=== PATIENT | male | born 1975 | race Caucasian/White ===

== ENCOUNTER 2017-07-02 16:59 | Emergency (ER) | payer OTHER ==
[~2017-07-02] VITALS: Ht 175.3 cm; Wt 88.6 kg
[2017-07-02 17:12] VITALS: BP 162/100; PULSE 114; RESP 15; O2SAT 98
[2017-07-02] MEDS ORDERED: METF850T PO (17:12)
[2017-07-02] MEDS ORDERED: GLIP5TAB8 PO (17:12)
[2017-07-02] MEDS ORDERED: ZOLO100T PO (17:12)
[2017-07-02] MEDS ORDERED: INSULIN HUMAN REGULAR 1,000 UNITS/10 ML VIAL IV PUSH ONE (17:15)
[2017-07-02] MEDS ORDERED: SODIUM CHLOR 0.9% 1000 ML INJ 1,000 ML IV ONE ×2 (17:15→17:45)
[2017-07-02] MEDS ORDERED: SODIUM CHLORIDE 0.9% FLUSH 10 ML FLUSH IVF PRN (17:15)
[2017-07-02 17:19] VITALS: BP 147/88; PULSE 113; PULSE 114; RESP 15; O2SAT 97; O2SAT 98
--- NOTE | 2017-07-02 17:20 | PD ---
HPI Chief Complaint: suicidal ideation Time Seen by Provider: 17:12 Travel History International Travel<30 days: No Contact w/Intl Traveler<30days: No Traveled to known affect area: No History of Present Illness HPI This patient has history of PTSD and diabetes. Been feeling depressed and suicidal for the last 5 days. He quit taking his medication 5 days ago. Accu- Chek on arrival was 539. He does not have specific suicidal plan. Symptoms severity is moderate. No alleviating factors. No exacerbating factors. He denies alcohol or drug abuse other than occasional marijuana. PFSH Social History Alcohol Use: No Tobacco Use: No Substance Use: No Allergies-Medications (Allergen,Severity, Reaction): Coded Allergies: No Known Allergies (Unverified , 07/02/17) Reported Meds & Prescriptions Reported Meds & Active Scripts Active Reported Metformin (Metformin HCl) 850 Mg Tab 850 Mg PO DAILY With a meal Glipizide 5 Mg Tab 5 Mg PO BIDAC Take 30 minutes before a meal Zoloft (Sertraline HCl) 100 Mg Tab 100 Mg PO DAILY Review of Systems General / Constitutional: No: Fever Eyes: No: Visual changes HENT: No: Headaches Cardiovascular: No: Chest Pain or Discomfort Respiratory: No: Shortness of Breath Gastrointestinal: No: Abdominal Pain Genitourinary: No: Dysuria Musculoskeletal: No: Pain Skin: No Rash Neurologic: No: Weakness Psychiatric: Positive: Depression, Suicidal Ideations, Disorder of Thought, Substance Abuse Endocrine: No: Polydipsia Hematologic/Lymphatic: No: Easy Bruising Physical Exam Narrative GENERAL: Well-nourished, well-developed patient in no apparent distress. SKIN: Focused skin assessment reveals no rash and nodules. Skin is Warm and dry. HEAD: Atraumatic. Normocephalic. EYES: Pupils equal and round. No scleral icterus. No injection or drainage. ENT: No nasal bleeding or discharge. Mucous membranes pink and moist. NECK: Trachea midline. No JVD. CARDIOVASCULAR: Regular rate and rhythm. No murmur appreciated. RESPIRATORY: No accessory muscle use. Clear to auscultation. Breath sounds equal bilaterally. GASTROINTESTINAL: Abdomen soft, non-tender, nondistended. Hepatic and splenic margins not palpable. MUSCULOSKELETAL: No obvious deformities. No clubbing. No cyanosis. No edema. NEUROLOGICAL: Awake and alert. No obvious cranial nerve deficits. Motor grossly within normal limits. Normal speech. PSYCHIATRIC: Depressed mood and flat affect; insight and judgment reduced . Data Data Last Documented VS Vital Signs Date Time Temp Pulse Resp B/P (MAP) Pulse Ox O2 Delivery O2 Flow Rate FiO2 07/02/17 17:19 113 15 147/88 (107) 98 Room Air Orders Orders Complete Blood Count With Diff (07/02/17 17:15) Comprehensive Metabolic Panel (07/02/17 17:15) Beta Hydroxybutyrate (Acetone) (07/02/17 17:15) Arterial Blood Gas (Abg) (07/02/17 17:15) Ecg Monitoring (07/02/17 17:15) Iv Access Insert/Monitor (07/02/17 17:15) Oximetry (07/02/17 17:15) NPO (07/02/17 17:15) Sodium Chlor 0.9% 1000 Ml Inj (Ns 1000 M (07/02/17 17:15) Sodium Chlor 0.9% 1000 Ml Inj (Ns 1000 M (07/02/17 17:45) Sodium Chloride 0.9% Flush (Ns Flush) (07/02/17 17:15) Insulin Human Regular Inj (Novolin R Inj (07/02/17 17:15) Psych Screen (07/02/17 17:17) Drug Screen, Random Urine (07/02/17 17:17) Alcohol (Ethanol) (07/02/17 17:15) Blood Gas Venous (Vbg) (07/02/17 17:44) Labs Laboratory Tests Test 07/02/17 17:00 07/02/17 17:20 07/02/17 17:44 07/02/17 18:20 White Blood Count 8.2 TH/MM3 Red Blood Count 4.80 MIL/MM3 Hemoglobin 15.4 GM/DL Hematocrit 43.3 % Mean Corpuscular Volume 90.2 FL Mean Corpuscular Hemoglobin 32.2 PG Mean Corpuscular Hemoglobin Concent 35.7 % Red Cell Distribution Width 12.8 % Platelet Count 203 TH/MM3 Mean Platelet Volume 8.6 FL Neutrophils (%) (Auto) 70.9 % Lymphocytes (%) (Auto) 22.4 % Monocytes (%) (Auto) 5.9 % Eosinophils (%) (Auto) 0.4 % Basophils (%) (Auto) 0.4 % Neutrophils # (Auto) 5.8 TH/MM3 Lymphocytes # (Auto) 1.8 TH/MM3 Monocytes # (Auto) 0.5 TH/MM3 Eosinophils # (Auto) 0.0 TH/MM3 Basophils # (Auto) 0.0 TH/MM3 CBC Comment DIFF FINAL Differential Comment Blood Gas Puncture Site LINE Blood Gas Patient Temperature 98.6 Venous Blood pH 7.37 Venous Blood Partial Pressure CO2 45 mmHg Venous Blood Partial Pressure O2 58 mmHg Venous Blood HCO3 25 mmol/L Venous Blood Oxygen Saturation 88 % Venous Blood Oxygen Content 18.2 Vol % Venous Blood Base Excess 0.6 mmol/L Blood Gas Inspired Oxygen 21 % MDM Medical Decision Making Medical Screen Exam Complete: Yes Emergency Medical Condition: Yes Medical Record Reviewed: Yes Differential Diagnosis Suicidal ideation, depression, adjustment disorder, hyperglycemia, DKA Narrative Course I have reviewed the patient's electronic medical record. IV placed I gave him 2 L normal saline IV bolus I gave him 12 units IV regular insulin CBC is normal Metabolic profile pending but will be reviewed LFTs pending but will be reviewed VBG shows pH of 7.37 with normal bicarbonate, he is not in DKA Beta hydroxybutyrate is pending but will be reviewed Alcohol is pending Tox screen pending I've ordered psychiatric screening and he desires that is feeling suicidal and depressed. After insulin and IV fluid his sugar is now 240 He feels physically well He is awaiting psychiatric evaluation He is is medically stable as can be made assuming that his electrolytes come back reasonably normal Diagnosis Primary Impression: Hyperglycemia Additional Impression: Depression with suicidal ideation Ruben Hannah MD Jul 02, 2017 17:20
[2017-07-02 17:45] LABS: AUTOMATED NEUTROPHIL # 5.8 TH/MM3 (1.8-7.7); BASOPHIL % 0.4 % (0.0-2.0); EOSINOPHIL % 0.4 % (0.0-4.0); HEMATOCRIT 43.3 % (39.0-51.0); HEMOGLOBIN 15.4 GM/DL (13.0-17.0); LYMPH % 22.4 % (9.0-44.0); LYMPHOCYTE # 1.8 TH/MM3 (1.0-4.8); MEAN CELL VOLUME 90.2 FL (80.0-100.0); MEAN CORPUSCULAR HEMOGLOBIN 32.2 PG (27.0-34.0); MEAN CORPUSCULAR HGB CONC 35.7 % (32.0-36.0); MEAN PLATELET VOLUME 8.6 FL (7.0-11.0); MONO % 5.9 % (0.0-8.0); MONOCYTE # 0.5 TH/MM3 (0-0.9); NEUT % 70.9 % (16.0-70.0); PLATELET COUNT 203 TH/MM3 (150-450); RED CELL DISTRIBUTION WIDTH 12.8 % (11.6-17.2); WHITE BLOOD COUNT 8.2 TH/MM3 (4.0-11.0)
[2017-07-02 19:02] LABS: ALBUMIN 3.3 GM/DL (3.4-5.0); ALKALINE PHOSPHATASE 80 U/L (45-117); ALT (GPT) 23 U/L (12-78); AST (GOT) 24 U/L (15-37); BICARBONATE 27.8 MEQ/L (21.0-32.0); BLOOD UREA NITROGEN 9 MG/DL (7-18); CALCIUM 7.4 MG/DL (8.5-10.1); CALCIUM-PROTEIN CORRECTED 7.7 MG/DL (8.5-10.1); CHLORIDE 101 MEQ/L (98-107); CREATININE 0.83 MG/DL (0.60-1.30); GLOMERULAR FILTRATION RATE 103 ML/MIN (>89); GLUCOSE,RANDOM 351 MG/DL (74-106); SODIUM (NA) 134 MEQ/L (136-145); TOTAL BILIRUBIN ADULT 0.4 MG/DL (0.2-1.0); TOTAL PROTEIN 6.5 GM/DL (6.4-8.2)
[2017-07-02 19:23] VITALS: BP 156/95; PULSE 103; RESP 18; O2SAT 98
[2017-07-03 02:24] VITALS: BP 127/67; PULSE 81; RESP 18; TEMP 98.3; O2SAT 96
[2017-07-03 06:40] VITALS: BP 128/73; PULSE 76; RESP 17; TEMP 98.6; O2SAT 98
[2017-07-03 09:46] VITALS: BP 124/67; PULSE 87; RESP 16; TEMP 98.5; O2SAT 98
[2017-07-03] MEDS ORDERED: ASPI81TA22 PO (10:29)
[2017-07-03] MEDS ORDERED: [UNRECOGNIZED DRUG - CODE] (10:34)
[2017-07-03] MEDS ORDERED: metFORMIN HCL 500 MG TAB PO ONE (12:30)
[2017-07-03 22:52] VITALS: BP 142/65; PULSE 75; RESP 17; TEMP 98.7; O2SAT 100
[2017-07-04 02:51] VITALS: BP 119/72; PULSE 73; RESP 17; TEMP 99; O2SAT 98
[2017-07-04 05:55] VITALS: RESP 17
[2017-07-04] MEDS ORDERED: metFORMIN HCL 500 MG TAB PO SCH (09:00)
--- NOTE | 2017-07-04 12:24 | PD ---
History of Present Illness Chief Complaint: Diabetic Time Seen by Provider: 12:05 Travel History International Travel<30 Days: No Contact w/Intl Traveler<30days: No Known affected area: No Legal Status Legal Status: Voluntary History of Present Illness: History of Present Illness HPI This patient is a 41-year-old male with reported history of depression who presents to the ED on a voluntary basis for psychiatric evaluation. His initial complaint to the ED provider was that he was feeling depressed and suicidal for the last 5 days. He also reported that he stopped taking his medications 5 days ago including his insulin. He does not have specific suicidal plan. Patient was monitored for extended period of time in the emergency department and he presented no suicidality and no behavioral concerns. The patient is connected with the [facility] and is awaiting placement at a [facility] facility in [facility]. He tells me that he has a bed for July 15 and that he has confirmed this with his case reviewer on the [place] team. Patient is seen, electronic medical record is reviewed, no previous contact with [facility]. The patient is alert, oriented male with disheveled appearance. His speech is clear, logical and coherent. Patient does not appear to be experiencing any symptoms of psychosis and denies any hallucinations, delusions or paranoia. The patient does not appear significantly depressed at this time. He does tell me that he ran out of medication which is Zoloft because he came down to stay here and forgot to bring his medications with him. The patient denies any suicidal or homicidal ideation. He is future oriented and is expecting to be admitted to a facility in the next couple weeks. He is also requesting to be discharge as he will be staying with his son. Concentration and attention are within normal limits. The remainder of the psychiatric review systems is negative [facility] Past Medical History Anxiety: Yes Depression: Yes Diabetes: Yes Patient Takes Glucophage: Yes Diminished Hearing: No Hypertension: Yes Psychiatric: Yes (PTSD) Tetanus Vaccination: < 5 Years Influenza Vaccination: Yes Past Surgical History Surgical History: No Previous Surgery Psychiatric History Psychiatric History Hx Psychiatric Treatment: DEPRESSION, PTSD History of Inpatient Treatment: No Guns or firearms in home: No Social History male, currently staying with his son, originally from [place]. Unemployed. Hx Alcohol Use: No Hx Tobacco Use: No Hx Substance Use: No Hx of Substance Use Treatment: No Family Psychiatric History Negative Allergies-Medications (Allergen,Severity, Reaction): Coded Allergies: No Known Allergies (Unverified , 07/02/17) Reported Meds & Prescriptions Reported Meds & Active Scripts Active Reported [facility] Cough (Dextromethorphan HBr) 15 Mg Cap Aspirin EC Low Dose (Aspirin) 81 Mg Tabec 81 Mg PO DAILY Metformin (Metformin HCl) 850 Mg Tab 1,000 Mg PO BID With a meal Glipizide 5 Mg Tab 5 Mg PO BIDAC Take 30 minutes before a meal Zoloft (Sertraline HCl) 100 Mg Tab 100 Mg PO DAILY Review of Systems Except as stated in HPI: all other systems reviewed are Neg Mental Status Examination Appearance: Appropriate Consciousness: Alert Orientation: x4 Motor Activity: Normal gait Speech: Unremarkable Language: Adequate Fund of Knowledge: Adequate Attention and Concentration: Adequate Memory: Unremarkable Mood: Appropriate Affect: Appropriate Thought Process & Associations: Intact, Logical, Goal directed Thought Content: Appropriate Hallucination Type: None Delusion Type: None Suicidal Ideation: No Suicidal Plan: No Suicidal Intention: No Homicidal Ideation: No Homicidal Plan: No Homicidal Intention: No Insight: Adequate Judgment: Adequate [facility] Medical Decision Making Medical Record Reviewed: Yes Assessment/Plan 41-year-old male with reported history of depression who presents to the ED on a voluntary basis seeking psychiatric evaluation. He reports feeling depressed and suicidal for the last 5 days. He quit taking his medication 5 days ago. He does not have specific suicidal plan. The patient was monitored in secure environment and presented no behavioral concerns and no suicidality. Attempts were made a getting patient into [facility] for further treatment but these were unsuccessful. This morning the patient reports that he has been in contact with his son and wants to be discharged to stay with his son. Patient with no psychosis, no olive, no suicidal or homicidal ideation, intent or plan. Is requesting discharge. He plans on following up with The [facility] in [facility] and has a bed available on Jul 15, 2017. The patient is future oriented and contracts for safety. He wants to restart the Zoloft. He will be given a prescription for the Zoloft until he is seen at the [facility]. Patient is psychiatrically clear for discharge Orders Orders Diet Regular Basic (07/03/17 Lunch) Metformin (Glucophage) (07/03/17 12:30) Diet Diabetic (07/04/17 Breakfast) Metformin (Glucophage) (07/04/17 09:00) Glyburide (Diabeta) (07/04/17 17:00) Diet Diabetic (07/04/17 Lunch) Results Vital Signs Date Time Temp Pulse Resp B/P (MAP) Pulse Ox O2 Delivery O2 Flow Rate FiO2 07/04/17 05:55 17 07/04/17 02:51 99.0 73 17 119/72 (88) 98 Room Air 07/03/17 22:52 98.7 75 17 142/65 (90) 100 Room Air Diagnosis Primary Impression: Hyperglycemia Additional Impressions: Depression with suicidal ideation Adjustment disorder Psychiatrically Cleared: Yes Med/ Other Pt Specific Info: Prescription(s) given Prescriptions Sertraline (Zoloft) 50 Mg Tab 50 MG PO DAILY for Depression Control, #30 TAB 0 Refills Prov: Negar Llanes 07/04/17 Disposition: 01 DISCHARGE HOME Condition: Stable Problem Qualifiers Additional Impressions: Adjustment disorder Qualified Codes: F43.21 - Adjustment disorder with depressed mood Negar Llanes Jul 04, 2017 12:24
--- NOTE | 2017-07-04 12:24 | PD ---
Physical Exam Date Seen by Provider: Jul 04, 2017 Time Seen by Provider: 12:19 Narrative 41-year-old male patient previously medically cleared for voluntary psychiatric evaluation has been seen by psychiatric services and deemed psychiatrically stable for discharge. Patient remains medically stable at this time. Patient will follow up as per psychiatry note. Data Data Last Documented VS Vital Signs Date Time Temp Pulse Resp B/P (MAP) Pulse Ox O2 Delivery O2 Flow Rate FiO2 07/04/17 05:55 17 07/04/17 02:51 99.0 73 98 Room Air Orders Orders Complete Blood Count With Diff (07/02/17 17:15) Comprehensive Metabolic Panel (07/02/17 17:15) Beta Hydroxybutyrate (Acetone) (07/02/17 17:15) Ecg Monitoring (07/02/17 17:15) Iv Access Insert/Monitor (07/02/17 17:15) Oximetry (07/02/17 17:15) NPO (07/02/17 17:15) Sodium Chlor 0.9% 1000 Ml Inj (Ns 1000 M (07/02/17 17:15) Sodium Chlor 0.9% 1000 Ml Inj (Ns 1000 M (07/02/17 17:45) Sodium Chloride 0.9% Flush (Ns Flush) (07/02/17 17:15) Insulin Human Regular Inj (Novolin R Inj (07/02/17 17:15) Psych Screen (07/02/17 17:17) Drug Screen, Random Urine (07/02/17 17:17) Alcohol (Ethanol) (07/02/17 17:15) Blood Gas Venous (Vbg) (07/02/17 17:44) Diet Regular Basic (07/03/17 Breakfast) Diet Regular Basic (07/03/17 Lunch) Metformin (Glucophage) (07/03/17 12:30) Diet Diabetic (07/04/17 Breakfast) Metformin (Glucophage) (07/04/17 09:00) Glyburide (Diabeta) (07/04/17 17:00) Diet Diabetic (07/04/17 Lunch) Labs Laboratory Tests Test 07/02/17 17:00 07/02/17 17:20 07/02/17 17:44 07/02/17 18:20 Blood Urea Nitrogen 9 MG/DL Creatinine 0.83 MG/DL Random Glucose 351 MG/DL Total Protein 6.5 GM/DL Albumin 3.3 GM/DL Calcium Level 7.4 MG/DL Alkaline Phosphatase 80 U/L Aspartate Amino Transf (AST/SGOT) 24 U/L Alanine Aminotransferase (ALT/SGPT) 23 U/L Total Bilirubin 0.4 MG/DL Sodium Level 134 MEQ/L Potassium Level 3.5 MEQ/L Chloride Level 101 MEQ/L Carbon Dioxide Level 27.8 MEQ/L Anion Gap 5 MEQ/L Estimat Glomerular Filtration Rate 103 ML/MIN Protein Corrected Calcium 7.7 MG/DL Ethyl Alcohol Level LESS THAN 3 MG/DL B-Hydroxybutyrate 0.20 MMOL/L White Blood Count 8.2 TH/MM3 Red Blood Count 4.80 MIL/MM3 Hemoglobin 15.4 GM/DL Hematocrit 43.3 % Mean Corpuscular Volume 90.2 FL Mean Corpuscular Hemoglobin 32.2 PG Mean Corpuscular Hemoglobin Concent 35.7 % Red Cell Distribution Width 12.8 % Platelet Count 203 TH/MM3 Mean Platelet Volume 8.6 FL Neutrophils (%) (Auto) 70.9 % Lymphocytes (%) (Auto) 22.4 % Monocytes (%) (Auto) 5.9 % Eosinophils (%) (Auto) 0.4 % Basophils (%) (Auto) 0.4 % Neutrophils # (Auto) 5.8 TH/MM3 Lymphocytes # (Auto) 1.8 TH/MM3 Monocytes # (Auto) 0.5 TH/MM3 Eosinophils # (Auto) 0.0 TH/MM3 Basophils # (Auto) 0.0 TH/MM3 CBC Comment DIFF FINAL Differential Comment Blood Gas Puncture Site LINE Blood Gas Patient Temperature 98.6 Venous Blood pH 7.37 Venous Blood Partial Pressure CO2 45 mmHg Venous Blood Partial Pressure O2 58 mmHg Venous Blood HCO3 25 mmol/L Venous Blood Oxygen Saturation 88 % Venous Blood Oxygen Content 18.2 Vol % Venous Blood Base Excess 0.6 mmol/L Blood Gas Inspired Oxygen 21 % Urine Opiates Screen NEG Urine Barbiturates Screen NEG Urine Amphetamines Screen NEG Urine Benzodiazepines Screen NEG Urine Cocaine Screen NEG Urine Cannabinoids Screen NEG MDM Medical Record Reviewed: Yes Supervised Visit with DARRELL: Yes Narrative Course 41-year-old male patient previously medically cleared for voluntary psychiatric evaluation has been seen by psychiatric services and deemed psychiatrically stable for discharge. Patient remains medically stable at this time. Patient will follow up as per psychiatry note. Diagnosis Primary Impression: Hyperglycemia Additional Impression: Depression with suicidal ideation Patient Instructions: General Instructions Additional Instruction: Follow-up per psychiatric services. Disposition: 01 DISCHARGE HOME Condition: Stable Carmelo Stewart Jul 04, 2017 12:24
[2017-07-04 12:30] VITALS: BP 111/59; PULSE 72; RESP 18; O2SAT 96
[2017-07-04] MEDS ORDERED: ZOLO50TA PO (12:30)
[2017-07-04] MEDS ORDERED: glyBURIDE 5 MG TAB PO SCH (17:00)
== END 2017-07-04 13:03 | disposition home or self-care (01) ==
LOC: NEPE 16:59 → EDBD 16:59 → NEPJ 07-04 13:03
DX: E11.65 Type 2 diabetes mellitus with hyperglycemia (principal); F32.9 Major depressive disorder, single episode, unspecified; R45.851 Suicidal ideations; F43.21 Adjustment disorder with depressed mood; Z79.84 Long term (current) use of oral hypoglycemic drugs; Z79.899 Other long term (current) drug therapy
CPT/HCPCS: 80053; 80307; 82010; 82805; 85025; 96361; 96374; 99284; J1815; J7030